=== PATIENT | male | born 1995 | race Two or more races ===

== ENCOUNTER 2025-05-07 22:11 | Emergency (ER) | payer MEDICAID, SELFPAY ==
[2025-05-07 22:14] VITALS: BMI 26.5
[2025-05-07 22:30] VITALS: BP 112/76; PULSE 112; RESP 18; TEMP 37.1; O2SAT 96
--- NOTE | 2025-05-07 22:42 | XR_ITS ---
Examination: Knee, right , 3 views Technique: Knee AP, lateral, oblique 3 views Date and time of exam: May 07, 2025 11:17 PM INDICATIONS: Knee pain and swelling beginning 3 days ago. FINDINGS: Severe osteopenia Postoperative reduction internal fixation fractures proximal tibia No acute fracture Small knee effusion IMPRESSION: Postoperative reduction internal fixation multiple fractures proximal tibia with satisfactory alignment No acute fracture Small knee effusion
--- NOTE | 2025-05-07 22:42 | XR_ITS ---
Examination: Duplex scan of the lower extremity, unilateral left Date and time of exam: May 07, 2025 2302 hours INDICATIONS: Right knee swelling and pain beginning 2 weeks ago Technique: Duplex scan of the extremity veins using B-mode/grayscale imaging and Doppler spectral analysis and color flow Attention is directed to internal echogenicity, compression and augmentation involving these veins, color flow assessment, spectral analysis Findings: Major deep venous structures in the extremity demonstrate normal course and caliber. There is no evidence of deep vein thrombosis. Normal color flow and spectral analysis Impression: Negative for DVT..
--- NOTE | 2025-05-07 22:43 | PD.EDRME ---
Rapid Medical Screening Exam RME Arrival date/time: 05/07/25 22:11 30M with history of multiples surgeries on R knee (most recently October of this year in [place]) presents to ED with several days of worsening R knee pain, swelling, and warmth. Patient states there also an open wound on R lower leg that wasn't healing for about 2 weeks. Possible fevers/chills, but patient also just got over a cold. Chief Complaint: Extremity Problem,Nontraumatic Time Seen by Provider: 05/07/25 23:29 Vital signs: Vital Signs Temperature 98.7 F 05/07/25 22:30 Pulse Rate 112 H 05/07/25 22:30 Respiratory Rate 18 05/07/25 22:30 Blood Pressure 112/76 05/07/25 22:30 Pulse Oximetry (%) 96 05/07/25 22:30 Oxygen Delivery Method Room Air 05/07/25 22:30
[2025-05-07 23:09] LABS: Basophils # (Auto) 0.0 Thou/mm3 (0.0-0.2); Basophils % (Auto) 0 % (0-2.5); Eosinophils # (Auto) 0.1 Thou/mm3 (0.0-0.5); Eosinophils % (Auto) 1 % (0-10); Hematocrit 40.5 % (41.0-53.0); Hemoglobin 13.7 g/dL (13.5-16.0); Immature Granulocytes Auto 0.04 Thou/mm3 (0.00-0.00); Lymphocytes # (Auto) 1.6 Thou/mm3 (1.0-4.8); Lymphocytes % (Auto) 15 % (10-50); Mean Corpuscular HGB Conc 33.8 g/dl (31.0-37.0); Mean Corpuscular Hemoglobin 32.9 pg (25.0-35.0); Mean Corpuscular Volume 97 fL (80-100); Monocytes # (Auto) 0.7 Thou/mm3 (0.0-0.8); Monocytes % (Auto) 7 % (0-12); Neutrophils # (Auto) 8.0 Thou/mm3 (1.8-7.7); Neutrophils % (Auto) 76 % (37-80); Nucleated Red Blood Cell # 0.00 Thou/mm3 (0.00-0.00); Nucleated Red Blood Cell % 0 /100 WBC (0); Platelet Count 219 Thou/mm3 (140-440); RDW Standard Deviation 41.9 fL (35.1-43.9); Red Blood Count 4.17 Miln/mm3 (4.50-5.90); White Blood Count 10.5 Thou/mm3 (3.8-10.6)
[2025-05-07 23:29] LABS: Alanine Aminotransferase 13 U/L (10-49); Albumin, Serum 4.6 gm/dL (3.5-5.0); Albumin/Globulin Ratio 1.3 (1.2-2.2); Alkaline Phosphatase 108 U/L (46-116); Anion Gap 10 (7-16); Aspartate Amino Transferase 15 U/L (0-34); BUN/Creatinine Ratio 9 Ratio (12-20); Bilirubin,Total 0.5 mg/dL (0.3-1.2); Blood Urea Nitrogen 10 mg/dL (9-23); Calcium 9.3 mg/dL (8.3-10.6); Calcium (Corrected) 9.3 mg/dL (8.5-10.1); Carbon Dioxide 26.9 mMol/L (20.0-31.0); Chloride 99 mMol/L (98-107); Creatinine (Component) 1.1 mg/dL (0.6-1.3); Estimated Creatinine Clearance 103.2 mL/min (>60); Globulin 3.5 gm/dL (2.3-3.5); Glucose 154 mg/dL (74-106); Osmolality,Calculated 273 (275-295); Potassium 3.2 mMol/L (3.4-5.1); Sodium 136 mMol/L (136-145); Total Protein 8.1 gm/dL (5.7-8.2); eGFR > 60 See Note
--- NOTE | 2025-05-07 23:38 | PD.EDEXREM ---
ED Extremity Problem RME/HPI General Chief complaint: Extremity Problem,Nontraumatic Stated complaint: RIGHT KNEE SWELLING Time Seen by Provider: 05/07/25 23:29 Arrival date/time: 05/07/25 22:11 RME / HPI RME / HPI Narrative: 05/07/25 22:11 30M with history of multiples surgeries on R knee (most recently October of this year in [place]) presents to ED with several days of worsening R knee pain, swelling, and warmth. Patient states there also an open wound on R lower leg that wasn't healing for about 2 weeks. Possible fevers/chills, but patient also just got over a cold. DR. HERNANDEZ MAIN ED EVALUATION: 30 y/o male presents to ED c/o RLE pain and swelling x 2 days. Patient noted a cut 1.5 weeks ago to the right lower extremity that did not heal after 2-3 days. Cut has been actively secreting pus and clear discharge. Patient reports pain when bearing weight on RLE and bending at the knee. No other concerns or complaint expressed at this time. Related Data Previous Rx's ?Medication ?Instructions ?Recorded tramadol 50 mg tablet 50 mg PO BID PRN pain #8 tabs 06/30/24 ibuprofen 800 mg tablet (IBU) 800 mg PO Q8H #20 tabs 07/30/24 hydrocodone 5 mg-acetaminophen 325 1 tab PO BID PRN pain #6 tabs 07/31/24 mg tablet cephalexin 500 mg tablet 500 mg PO TID 10 days #30 tabs 05/07/25 sulfamethoxazole 800 1 tab PO BID 10 days #20 tabs 05/07/25 mg-trimethoprim 160 mg tablet (Bactrim DS) Allergies Allergy/AdvReac Type Severity Reaction Status Date / Time No Known Allergies Allergy Verified 07/01/24 10:15 Review of Systems Review of Systems Systems Reviewed: All systems reviewed, normal except as documented Past Medical History Social History SMOKING STATUS: Current some day smoker ED Exam Narrative Physical exam: Generally the patient is alert oriented x 3 and in no obvious distress, heart is regular rate and rhythm without murmurs rubs gallops extra auscultation equal bilaterally abdomen soft bowel sounds present nondistended nontender extremity shows some swelling warmth and tenderness over the anterior proximal tibia with a small wound draining a small amount of exudate with the erythema extending up towards the knee. Mild swelling around the right knee. He is able to flex and extend at the right knee with little pain. Course Quality Measures none Orders Category Date Time Status US venous doppler LE RT Stat Exams 05/07/25 22:42 Completed XR knee RT 3V Stat Exams 05/07/25 22:42 Taken CBC Stat Lab 05/07/25 22:54 Results CMP [Comprehensive Metabolic Panel] Stat Lab 05/07/25 22:54 Completed CRP [C-Reactive Protein] Stat Lab 05/07/25 22:54 Completed ESR [Sed Rate (ESR)] Stat Lab 05/07/25 22:54 Results Vital Signs Vital signs: Vital Signs Temperature 98.7 F 05/07/25 22:30 Pulse Rate 112 H 05/07/25 22:30 Respiratory Rate 18 05/07/25 22:30 Blood Pressure 112/76 05/07/25 22:30 Pulse Oximetry (%) 96 05/07/25 22:30 Oxygen Delivery Method Room Air 05/07/25 22:30 Extremity Problem MDM Narrative MDM Narrative:: Scribe Attestation: I, Sandra Sesay, am scribing for and in the presence of Dr. Hernandez. Provider Notation: Although this document has been carefully reviewed, there may still be some phonetic and other typographical errors.? These errors are purely grammatical due to imperfections in the software program and should not be construed in any way to? compromise the substance of the patient's medical care during this visit. I do not suspect a septic joint. Patient has cellulitis with a possible localized self draining subcutaneous abscess. Patient will be started on cephalexin and Bactrim to be taken as prescribed. Follow-up with his doctor. Return to ER as needed or if condition worsens. I interpreted all labs. Doppler ultrasound to the right lower extremity showed no evidence of deep venous thrombosis. X-ray of the right knee shows hardware to be in place. Patient data External records reviewed:: [facility] previous records (Reviewed prior ED records from 07/31/24. Patient was seen for Toothache.) Clinical information provided by:: patient Social determinants that could affect healthcare access:: none Patient has the following chronic illnesses:: None reported. How is presenting disease/condition affected by chronic disease/condition?: no chronic disease Evaluation data The following diagnostics were reviewed and interpreted by me:: lab results and radiology exam(s) Lab and/or radiology exams considered but not ordered:: None Interpretation Summary: RADIOLOGY Venous Doppler Study: Findings: Major deep venous structures in the extremity demonstrate normal course and caliber. There is no evidence of deep vein thrombosis. Normal color flow and spectral analysis Impression: Negative for DVT. Right Knee X-Ray: See MDM above. Medications / Prescriptions Medications or Prescriptions considered but not ordered:: None Medication administrations:: See above if any Consultations Consultation(s) initiated? (list below): No Diagnosis Extremity Problem Differential Diagnosis: cellulitis, superficial thrombophlebitis, lower extremity edema and deep vein thrombosis of lower extremity Most likely diagnosis given after review of the tests above:: Cellulitis Admission Indicated Admission indicated?: not indicated Explain why admission is indicated or not indicated:: Patient does not meet admission criteria. Admission Request Was there a request for admission?: No Disposition Plan Disposition Plan: Discharge Discharge Attestation Discharge Attestation: The patient and all family members were given an opportunity to ask questions and understood the discharge instructions. Discharge instructions specifically effects, indications for sooner follow up or return to the emergency department, and the expected course of current diagnosis. Patient condition: Stable Discharge Plan Plan Patient Disposition: HOME (Self Care) Prescriptions/Referrals Prescriptions/Med Rec: New cephalexin 500 mg tablet 500 mg PO TID 10 Days Qty: 30 0RF sulfamethoxazole-trimethoprim [Bactrim DS] 800-160 mg tablet 1 tab PO BID 10 Days Qty: 20 0RF No Action tramadol 50 mg tablet 50 mg PO BID PRN (Reason: pain) Qty: 8 0RF ibuprofen [IBU] 800 mg tablet 800 mg PO Q8H Qty: 20 0RF hydrocodone-acetaminophen 5-325 mg tablet 1 tab PO BID MDD 10mg PRN (Reason: pain) Qty: 6 0RF Problem List Clinical Impression: Cellulitis Patient/Caregiver Discharge Instructions Additional Instructions: Take the antibiotics as prescribed. Follow-up with your doctor. Return to ER as needed or if condition worsens. Print Language: Angolan Stand Alone Forms: [facility] Award Info., Patient Portal Info Letter
[2025-05-07 23:41] LABS: C-Reactive Protein 16.6 mg/dL (0.0-0.9)
[2025-05-08 00:07] VITALS: BP 116/72; PULSE 76; RESP 16; TEMP 36.7; O2SAT 98
[2025-05-08 00:17] LABS: Sed Rate (ESR) 91 mm/hr (0-15)
== END 2025-05-08 00:11 | disposition home or self-care (01) ==
LOC: SERX 05-08
PROVIDERS: Physician Assistant; Emergency Provider Emergency Medicine
DX: L03.115 Cellulitis of right lower limb (principal); M25.461 Effusion, right knee
CPT/HCPCS: 36415; 73562; 80053; 85025; 85652; 86140; 93971; 99283

== ENCOUNTER 2025-06-10 17:45 | Emergency (ER) | payer MEDICAID, SELFPAY ==
[2025-06-10 18:06] VITALS: BP 121/78; PULSE 78; RESP 17; TEMP 36.8; O2SAT 98; BMI 26.4
--- NOTE | 2025-06-10 18:37 | XR_ITS ---
Examination: Tibia-Fibula, right 2 views Technique one AP lateral right tibia-fibula 2 views Date and time: June 10, 2025, 1852 hours, comparison May 07, 2025 INDICATIONS: Open wound in the lower leg today FINDINGS: Operative reduction internal fixation comminuted fractures proximal tibia Soft tissue swelling anterior proximal and mid tibial shaft with erosion involving the cortex of the anterior tibia, osteomyelitis pattern IMPRESSION: Soft tissue swelling upper anterior tibial shaft with cortical bone destruction involving the proximal tibia, osteomyelitis pattern
--- NOTE | 2025-06-10 18:37 | XR_ITS ---
Examination: Knee, right , 3 views Technique: Knee AP, lateral, oblique 3 views Date and time of exam: June 10, 2025, 1840 hours, comparison May 07, 2025 INDICATIONS: Right knee swelling and pain beginning 10 days ago. FINDINGS: Postop reduction internal fixation comminuted fractures proximal tibia with stable and satisfactory alignment Soft tissue swelling anterior to the proximal tibial shaft with subtle cortical erosion involving the colon of the anterior proximal tibial shaft Partial healing Satisfactory position orthopedic hardware Moderate knee effusion IMPRESSION: Postop reduction internal fixation comminuted fractures proximal tibia with stable and satisfactory alignment Moderate knee effusion, aseptic arthritis is a clinical consideration, this effusion is amenable to fluoroscopically guided aspiration for culture and sensitivity Suspicious for chronic osteomyelitis upper anterior tibial shaft
--- NOTE | 2025-06-10 18:37 | EDRME_ITS ---
Rapid Medical Screening Exam E Arrival date/time: 06/10/25 17:45 30M with history of multiples surgeries on R knee (most recently October of this year in [place]) presents to ED with several weeks of of worsening R knee/lower leg pain, swelling, and warmth. Patient states there's also an open wound on R lower leg that hasn't healing for about 1 month. Patient was here last month for this with high inflammatory markers, but was sent home with Keflex and Bactrim. Patient finished both ABX, but has only approved a bit. Patient has pending outpatient ortho referral. Chief Complaint: Extremity Problem,Nontraumatic Vital signs: Vital Signs Temperature 98.3 F 06/10/25 18:06 Pulse Rate 78 06/10/25 18:06 Respiratory Rate 17 06/10/25 18:06 Blood Pressure 121/78 06/10/25 18:06 Pulse Oximetry (%) 98 06/10/25 18:06 Oxygen Delivery Method Room Air 06/10/25 18:06
[2025-06-10 19:18] LABS: Basophils # (Auto) 0.0 Thou/mm3 (0.0-0.2); Basophils % (Auto) 1 % (0-2.5); Eosinophils # (Auto) 0.2 Thou/mm3 (0.0-0.5); Eosinophils % (Auto) 2 % (0-10); Hematocrit 39.2 % (41.0-53.0); Hemoglobin 13.3 g/dL (13.5-16.0); Immature Granulocytes Auto 0.02 Thou/mm3 (0.00-0.00); Lymphocytes # (Auto) 2.7 Thou/mm3 (1.0-4.8); Lymphocytes % (Auto) 33 % (10-50); Mean Corpuscular HGB Conc 33.9 g/dl (31.0-37.0); Mean Corpuscular Hemoglobin 32.8 pg (25.0-35.0); Mean Corpuscular Volume 97 fL (80-100); Monocytes # (Auto) 0.6 Thou/mm3 (0.0-0.8); Monocytes % (Auto) 7 % (0-12); Neutrophils # (Auto) 4.5 Thou/mm3 (1.8-7.7); Neutrophils % (Auto) 57 % (37-80); Nucleated Red Blood Cell # 0.00 Thou/mm3 (0.00-0.00); Nucleated Red Blood Cell % 0 /100 WBC (0); Platelet Count 271 Thou/mm3 (140-440); RDW Standard Deviation 46.4 fL (35.1-43.9); Red Blood Count 4.05 Miln/mm3 (4.50-5.90); White Blood Count 8.0 Thou/mm3 (3.8-10.6)
[2025-06-10 19:36] LABS: Sed Rate (ESR) 29 mm/hr (0-15)
[2025-06-10 19:41] LABS: Alanine Aminotransferase 17 U/L (10-49); Albumin, Serum 4.5 gm/dL (3.5-5.0); Albumin/Globulin Ratio 1.6 (1.2-2.2); Alkaline Phosphatase 101 U/L (46-116); Anion Gap 10 (7-16); Aspartate Amino Transferase 20 U/L (0-34); BUN/Creatinine Ratio 12 Ratio (12-20); Bilirubin,Total 0.4 mg/dL (0.3-1.2); Blood Urea Nitrogen 11 mg/dL (9-23); Calcium 10.0 mg/dL (8.3-10.6); Calcium (Corrected) 10.0 mg/dL (8.5-10.1); Carbon Dioxide 24.5 mMol/L (20.0-31.0); Chloride 109 mMol/L (98-107); Creatinine (Component) 0.9 mg/dL (0.6-1.3); Estimated Creatinine Clearance 130.1 mL/min (>60); Globulin 2.9 gm/dL (2.3-3.5); Glucose 86 mg/dL (74-106); Osmolality,Calculated 283 (275-295); Potassium 3.6 mMol/L (3.4-5.1); Sodium 143 mMol/L (136-145); Total Protein 7.4 gm/dL (5.7-8.2); eGFR > 60 See Note
[2025-06-10 19:42] LABS: C-Reactive Protein < 0.5 mg/dL (0.0-0.9)
[2025-06-10 21:21] VITALS: BP 117/77; PULSE 77; RESP 18; TEMP 37.1; O2SAT 96
--- NOTE | 2025-06-10 21:29 | PD.EDEXREM ---
ED Extremity Problem RME/HPI General Chief complaint: Extremity Problem,Nontraumatic Stated complaint: Right knee edema from infection Arrival date/time: 06/10/25 17:45 RME / HPI RME / HPI Narrative: 06/10/25 17:45 30M with history of multiples surgeries on R knee (most recently October of this year in [place]) presents to ED with several weeks of of worsening R knee/lower leg pain, swelling, and warmth. Patient states there's also an open wound on R lower leg that hasn't healing for about 1 month. Patient was here last month for this with high inflammatory markers, but was sent home with Keflex and Bactrim. Patient finished both ABX, but has only approved a bit. Patient has pending outpatient ortho referral. DR. TRACY MAIN ED EVALUATION: Patient s/p tibia fracture in September 2024 with subsequent internal fixation in October 2024 requiring second surgery at that time. Seen in April with spontaneous drainage from lesion in anterior mid portion of leg. Treated with Keflex and Bactrim with transient improvement. Returns with recurrent drainage at prevous site. No vomiting, fever, chills, or diarrhea. PMH unremarkable. Social daily smoker no illicit drug abuse. Related Data Previous Rx's ?Medication ?Instructions ?Recorded tramadol 50 mg tablet 50 mg PO BID PRN pain #8 tabs 06/30/24 ibuprofen 800 mg tablet (IBU) 800 mg PO Q8H #20 tabs 07/30/24 hydrocodone 5 mg-acetaminophen 325 1 tab PO BID PRN pain #6 tabs 07/31/24 mg tablet hydrocodone 5 mg-acetaminophen 325 1 tab PO Q8H PRN pain #20 tabs 06/10/25 mg tablet Allergies Allergy/AdvReac Type Severity Reaction Status Date / Time No Known Allergies Allergy Verified 06/10/25 17:50 Review of Systems Review of Systems Systems Reviewed: All systems reviewed, normal except as documented ED Exam Narrative Physical exam: GEN. APPEARANCE: The patient is alert awake oriented X-3 in no distress, lying down comfortably, does not look ill/toxic. Patient has good eye contact. Patient is cooperative. VITALS: All vitals were reviewed and the pulse ox is 96% on room air which is normal according to my interpretation. HEENT: Normocephalic, atraumatic. Pupils are equal and reactive. Oral mucosa is moist. Patent Nares NECK: Supple, nontender, no thyromegaly, no meningismus, no JVD, no step offs CHEST: Symmetrical, atraumatic, and with equal expansion , Nontender on palpation no deformity and no crepitus. CARDIOVASCULAR: Heart regular rhythm no murmur or gallop rub or extra beats. LUNGS: Clear to auscultation bilaterally with symmetrical chest rise. No laboring tachypnea or wheezing. No intercostal subcostal retraction. No rales and no rhonchi. ABDOMEN: Soft, flat, nontender to palpation, no guarding or rebound tenderness. There are no abnormal masses palpated. Active and normal bowel sounds. EXTREMITIES: No cyanosis. Patient is able to move all 4 extremities well, with full ROM and good CSM. Right leg demonstrating 2 cm wound draining slightly purulent yellow appearing material, slight surrounding edema without enduration, no overlying warmth or erythema distal function intact. SKIN: Warm and dry, no jaundice or rashes noted. MUSCULOSKELETAL: No lubar or midline bony tenderness. There is no CVA tenderness. No paraspinal muscle spasm or tenderness. NEURO: Patient is MAN x 4, Cranial nerves II through XII grossly intact. There is no focal neurologic deficits noted. GCS is 15, PNS and [employer] appear grossly intact. PSYCHIATRIC: Patient is in normal mood and affect, cooperative, no SI or HI or hallucinations. Course Quality Measures none Orders Category Date Time Status XR knee RT 3V Stat Exams 06/10/25 18:37 Completed XR tibia fibula RT 2V Stat Exams 06/10/25 18:37 Completed CBC Stat Lab 06/10/25 19:04 Completed CBC [CBC] Stat Lab 06/10/25 21:43 Completed CMP [Comprehensive Metabolic Panel] Stat Lab 06/10/25 19:04 Completed CMP [Comprehensive Metabolic Panel] Stat Lab 06/10/25 21:43 Completed CRP [C-Reactive Protein] Stat Lab 06/10/25 19:04 Completed ESR [Sed Rate (ESR)] Stat Lab 06/10/25 19:04 Completed Lactic Acid [Lactate (Lactic Acid)] Stat Lab 06/10/25 21:43 Completed Sed Rate (ESR) Stat Lab 06/10/25 21:43 Completed Urinalysis, C/S if Indicated Stat Lab 06/10/25 22:27 Completed Wound Culture and Gram Stain Stat Lab 06/10/25 21:40 Received Clindamycin 900Mg Ivpb [Cleocin/D5w Ivpb] 900 mg Med 06/10/25 21:19 Discontinued Pre-Mixed [Pre-mixed Bag] 1 bag IV X1 Vital Signs Vital signs: Vital Signs Temperature 98.3 F 06/10/25 18:06 Pulse Rate 78 06/10/25 18:06 Respiratory Rate 17 06/10/25 18:06 Blood Pressure 121/78 06/10/25 18:06 Pulse Oximetry (%) 98 06/10/25 18:06 Oxygen Delivery Method Room Air 06/10/25 18:06 Extremity Problem MDM Narrative MDM Narrative:: Scribe Attestation: Sandra Mathew, chica scribing for and in the presence of Dr. Tracy. Provider Notation: Although this document has been carefully reviewed, there may still be some phonetic and other typographical errors. These errors are purely grammatical due to imperfections in the software program and should not be construed in any way to? compromise the substance of the patient's medical care during this visit. Patient s/p tibia fracture in September 2024 with subsequent internal fixation in October 2024 requiring second surgery at that time. Seen in April with spontaneous drainage from lesion in anterior mid portion of leg. Please see PE findings. Laboratory markers WBC 7.6, Hgb 12.5, Hct 37.5%. Serum chemistries unremarkable and UA pending. Routine x-rays of tibia/fibula demonstrates changes consistent with osteomyelitis of anterior, proximal, and mid tibia shaft with erosion of the cortex. Right knee x-rays also obviously demonstrate small effusion.Wound culture obtained from current area of drainage. Imperic abx administration, patient is non-toxic, hemodynamically stable with no signs of distress. [facility] and [facility]. Diagnoses include chronic recurrent wound, right leg, chronic osteomyelitis of right tibia, and disposition home. Patient's orthopedic surgeon contacted and would prefer patient be seen electively in office over the next few days. Discussed imperical ABX, will hold at this time. Patient will require advanced imaging and removal of hardware. Patient will be discharged home on crutches with precautionary instructions. Ortho team will contact patient in the morning to expedite definitive care. Patient data External records reviewed:: [facility] previous records (Reviewed prior ED records from 05/07/25. Patient was seen for Cellulitis.) Clinical information provided by:: patient Social determinants that could affect healthcare access:: none Patient has the following chronic illnesses:: None reported How is presenting disease/condition affected by chronic disease/condition?: no chronic disease Evaluation data The following diagnostics were reviewed and interpreted by me:: lab results and radiology exam(s) Lab and/or radiology exams considered but not ordered:: None Interpretation Summary: RADIOLOGY Tibia/Fibula X-Ray: FINDINGS: Operative reduction internal fixation comminuted fractures proximal tibia Soft tissue swelling anterior proximal and mid tibial shaft with erosion involving the cortex of the anterior tibia, osteomyelitis pattern IMPRESSION: Soft tissue swelling upper anterior tibial shaft with cortical bone destruction involving the proximal tibia, osteomyelitis pattern Knee X-Ray: FINDINGS: Postop reduction internal fixation comminuted fractures proximal tibia with stable and satisfactory alignment Soft tissue swelling anterior to the proximal tibial shaft with subtle cortical erosion involving the colon of the anterior proximal tibial shaft Partial healing Satisfactory position orthopedic hardware Moderate knee effusion IMPRESSION: Postop reduction internal fixation comminuted fractures proximal tibia with stable and satisfactory alignment Moderate knee effusion, aseptic arthritis is a clinical consideration, this effusion is amenable to fluoroscopically guided aspiration for culture and sensitivity Suspicious for chronic osteomyelitis upper anterior tibial shaft Medications / Prescriptions Medications or Prescriptions considered but not ordered:: None Medication administrations:: Medication Administration History Discontinued Medications Clindamycin Phosphate 900 mg/ (IV Miscellaneous Supplies) 50 mls @ 50 mls/hr IV X1 ONE Stop: 06/10/25 22:18 Last Infusion: 06/10/25 23:18 Dose: Infused Documented By: Admin: 06/10/25 21:42 Dose: 50 mls/hr Documented By: SM See above if any. Consultations Consultation(s) initiated? (list below): Yes Consultation #1 (Physician, Specialty, Details): Aniceto Stokes made aware of the patient?s HPI, PMHx, lab and/or radiology results. Treatment plan was discussed. Will see patient tomorrow. Time: 23:19 Diagnosis Extremity Problem Differential Diagnosis: herpes zoster, gout, cellulitis, superficial thrombophlebitis, lower extremity edema and deep vein thrombosis of lower extremity Most likely diagnosis given after review of the tests above:: Chronic recurrent wound, right leg, chronic osteomyelitis of right tibia. Admission Indicated Admission indicated?: not indicated Explain why admission is indicated or not indicated:: Patient does not meet admission criteria. Admission Request Was there a request for admission?: No Disposition Plan Disposition Plan: Discharge (Intended) Discharge Attestation Discharge Attestation: The patient and all family members were given an opportunity to ask questions and understood the discharge instructions. Discharge instructions specifically effects, indications for sooner follow up or return to the emergency department, and the expected course of current diagnosis. Patient condition: Stable Discharge Plan Plan Patient Disposition: HOME (Self Care) Prescriptions/Referrals Prescriptions/Med Rec: No Action tramadol 50 mg tablet 50 mg PO BID PRN (Reason: pain) Qty: 8 0RF ibuprofen [IBU] 800 mg tablet 800 mg PO Q8H Qty: 20 0RF hydrocodone-acetaminophen 5-325 mg tablet 1 tab PO BID MDD 10mg PRN (Reason: pain) Qty: 6 0RF Referrals: Kevin Amaral MD [Primary Care Provider] - In 1 week Problem List Clinical Impression: Chronic wound, Osteomyelitis of right tibia Patient/Caregiver Discharge Instructions Education Materials: Osteomyelitis Dc Print Language: Khmer Stand Alone Forms: [facility] Award Info., Patient Portal Info Letter
[2025-06-10] MEDS: CLINDAMYCIN 900MG IVPB 900 MG in PRE-MIXED 1 BAG 50 MG IV (21:42)
[2025-06-10 21:53] LABS: Lactate (Lactic Acid) 1.1 mMol/L (0.4-2.0)
[2025-06-10 22:00] LABS: Sed Rate (ESR) 23 mm/hr (0-15)
[2025-06-10 22:01] LABS: Basophils # (Auto) 0.0 Thou/mm3 (0.0-0.2); Basophils % (Auto) 0 % (0-2.5); Eosinophils # (Auto) 0.2 Thou/mm3 (0.0-0.5); Eosinophils % (Auto) 3 % (0-10); Hematocrit 37.5 % (41.0-53.0); Hemoglobin 12.5 g/dL (13.5-16.0); Immature Granulocytes Auto 0.02 Thou/mm3 (0.00-0.00); Lymphocytes # (Auto) 2.8 Thou/mm3 (1.0-4.8); Lymphocytes % (Auto) 37 % (10-50); Mean Corpuscular HGB Conc 33.3 g/dl (31.0-37.0); Mean Corpuscular Hemoglobin 32.6 pg (25.0-35.0); Mean Corpuscular Volume 98 fL (80-100); Monocytes # (Auto) 0.6 Thou/mm3 (0.0-0.8); Monocytes % (Auto) 7 % (0-12); Neutrophils # (Auto) 4.0 Thou/mm3 (1.8-7.7); Neutrophils % (Auto) 53 % (37-80); Nucleated Red Blood Cell # 0.00 Thou/mm3 (0.00-0.00); Nucleated Red Blood Cell % 0 /100 WBC (0); Platelet Count 258 Thou/mm3 (140-440); RDW Standard Deviation 47.2 fL (35.1-43.9); Red Blood Count 3.84 Miln/mm3 (4.50-5.90); White Blood Count 7.6 Thou/mm3 (3.8-10.6)
[2025-06-10 22:16] LABS: Alanine Aminotransferase 16 U/L (10-49); Albumin, Serum 4.3 gm/dL (3.5-5.0); Albumin/Globulin Ratio 1.4 (1.2-2.2); Alkaline Phosphatase 96 U/L (46-116); Anion Gap 7 (7-16); Aspartate Amino Transferase 19 U/L (0-34); BUN/Creatinine Ratio 11 Ratio (12-20); Bilirubin,Total 0.3 mg/dL (0.3-1.2); Blood Urea Nitrogen 11 mg/dL (9-23); Calcium 9.6 mg/dL (8.3-10.6); Calcium (Corrected) 9.6 mg/dL (8.5-10.1); Carbon Dioxide 25.6 mMol/L (20.0-31.0); Chloride 110 mMol/L (98-107); Creatinine (Component) 1.0 mg/dL (0.6-1.3); Estimated Creatinine Clearance 117.1 mL/min (>60); Globulin 3.0 gm/dL (2.3-3.5); Glucose 107 mg/dL (74-106); Osmolality,Calculated 284 (275-295); Potassium 3.6 mMol/L (3.4-5.1); Sodium 143 mMol/L (136-145); Total Protein 7.3 gm/dL (5.7-8.2); eGFR > 60 See Note
[2025-06-10 22:36] LABS: Collection Type, Urine Clean Catch
[2025-06-10 22:48] LABS: Bilirubin,Urine Negative (Negative); Blood,Urine Negative (Negative); Clarity,Urine Clear (Clear/Hazy); Color,Urine Yellow (Lt Yel-Yel); Culture Indicated,Urine Not Indicated; Glucose, Urine Negative (Negative); Ketones,Urine Negative (Negative); Leukocyte Esterase,Urine Negative (Negative); Nitrite,Urine Negative (Negative); PH,Urine 6.0 (5.0-7.0); Protein,Urine Trace (Neg - Trace); RBC,Urine 3 /hpf (0-3); Specific Gravity,Urine 1.037 (1.001-1.035); Squamous Epithelial Cell,Urine < 1 /hpf (0-5); Urobilinogen,Urine Negative mg/dL (0.0-1.0); WBC,Urine 1 /hpf (0-5)
[2025-06-11 00:11] VITALS: BP 117/77
== END 2025-06-11 00:12 | disposition home or self-care (01) ==
PROVIDERS: Physician Assistant; Emergency Provider Emergency Medicine; PCP Family Medicine
DX: M86.661 Other chronic osteomyelitis, right tibia and fibula (principal); M25.461 Effusion, right knee; S82.251D Displaced comminuted fracture of shaft of right tibia, subsequent encounter for closed fracture with routine healing; X58.XXXD Exposure to other specified factors, subsequent encounter
CPT/HCPCS: 36415; 73562; 73590; 80053; 81001; 83605; 85025; 85652; 86140; 87070; 87205; 96365; 99284; J0736

== ENCOUNTER → 2025-08-23 | Outpatient (CLI) | payer MEDICAID, SELFPAY ==
--- NOTE | 2025-08-23 13:53 | XR_ITS ---
Examination: Knee, right, 3 views Technique: Knee AP, lateral, oblique 3 views Date and time of exam: August 23, 2025, 1433 hours INDICATIONS: Postremoval tibial hardware FINDINGS: Comparison August 10, 2025 Orthopedic tibial hardware no longer identified Healed fractures proximal tibia Moderate tricompartment osteoarthritis IMPRESSION: Orthopedic tibial hardware normal identified
== END | disposition home or self-care (01) ==
LOC: CDIM 13:46
PROVIDERS: PCP Family Medicine; Referring Provider Orthopaedic Surgery; Visit Provider Orthopaedic Surgery
DX: M25.561 Pain in right knee (principal); Z96.651 Presence of right artificial knee joint
CPT/HCPCS: 73562